=== PATIENT | female | born 1990 | race Two or more races ===

== ENCOUNTER 2024-08-19 13:37 | Emergency (ER) | payer OTHER, SELFPAY ==
[2024-08-19 13:43] VITALS: BP 121/79; PULSE 77; RESP 16; TEMP 36.9; O2SAT 99; BMI 22.3
--- NOTE | 2024-08-19 14:57 | ED.GENADULT ---
HPI - General Adult General Chief complaint: Abdominal Pain Stated complaint: abdominal pain Time Seen by Provider: 08/19/24 14:09 History of Present Illness HPI narrative: [employer]. Pt reports lower right abd pain that started overnight, is concerned of appendicitis. No symptoms other than pain . Rates pain 33-year-old woman presenting to the emergency department with complaint of right lower abdominal pain beginning last night rather intensely and has continued though to this next afternoon. She describes it is somewhat pulsatile. Not as intense as it was before. Can not seem to do anything to affect this pain. Has not taken any medication. No fever. No nausea. No dysuria. No hematuria. She is worried about appendicitis. She has not had any vaginal bleeding or other unusual discharge. She would be anticipating her menses shortly. While she is having bowel movements every day she admits that they are somewhat firm, smaller. She would appreciate something for the pain. Related Data Home Medications ?Medication ?Instructions ?Recorded ?Confirmed No Known Home Medications 08/19/24 08/19/24 Allergies Allergy/AdvReac Type Severity Reaction Status Date / Time Penicillins Allergy Unknown Verified 08/19/24 13:47 Review of Systems Status of ROS: Reports: 6 or more systems reviewed and unremarkable except as noted in History and below Exam Narrative: Exam Narrative: Very pleasant. NAD. Breathing easily. Lungs are clear. Skin is warm and dry. Cheeks are a little red consistent with exposure. Heart in regular rate and rhythm without murmur rub or gallop. Abdomen is soft and normal bowel sounds. No peritoneal signs. Does have reproducible discomfort mild in the right mid to low abdomen. No masses appreciated. Discomfort is not really adnexal. Well-perfused peripherally. Extremities without edema. Const: Vital Signs, click to edit/add: Vital Signs - 24 hr 08/19/24 13:43 Temperature 98.5 F Pulse Rate [Pulse Oximeter] 77 Respiratory Rate 16 Blood Pressure [Ri ght Upper Arm] 121/79 Pulse Oximetry 99 Oxygen Delivery Me thod Room Air Documenting provider has reviewed patient's vital signs: yes Course Vital Signs Vital signs: Initial Vital Signs Temperature 98.5 F 08/19/24 13:43 Temperature Source Temporal Artery Scan 08/19/24 13:43 Pulse Rate 77 08/19/24 13:43 Respiratory Rate 16 08/19/24 13:43 Blood Pressure 121/79 08/19/24 13:43 Blood Pressure Mean 93 08/19/24 13:43 Blood Pressure Position Sitting 08/19/24 13:43 Pulse Oximetry 99 08/19/24 13:43 Oxygen Delivery Method Room Air 08/19/24 13:43 Vital Signs Temperature 98.5 F 08/19/24 13:43 Pulse Rate 77 08/19/24 13:43 Respiratory Rate 16 08/19/24 13:43 Blood Pressure 121/79 08/19/24 13:43 Pulse Oximetry 99 08/19/24 13:43 Oxygen Delivery Method Room Air 08/19/24 13:43 Temperature 98.5 F 08/19/24 13:43 Pulse Rate 77 08/19/24 13:43 Respiratory Rate 16 08/19/24 13:43 Blood Pressure 121/79 08/19/24 13:43 Pulse Oximetry 99 08/19/24 13:43 Oxygen Delivery Method Room Air 08/19/24 13:43 Medications Administered Medications: Discontinued Medications Generic Name Dose Route Start Last Admin Trade Name Eric PRN Reason Stop Dose Admin Ibuprofen 800 mg 08/19/24 15:07 08/19/24 15:37 Ibuprofen 400 Mg Tablet PO 08/19/24 15:08 800 mg ONCE ONE Administration Medical Decision Making MDM Narrative Medical decision making narrative: I would be more suspicious of intestinal colic related to constipation. Can certainly check labs looking for red flags to warrant further evaluation. Check urinalysis for potential urinary tract infection or ureteral stone and colic and of course hCG for potential ectopic. Has never had ovarian cyst but this is a possibility to though not really with discomfort in the adnexal area. This is not appear to be biliary area pain but will check liver labs. I do not think this is a surgical abdomen and so with her request for some pain medicine, giving some ibuprofen. Lack of pain seems inconsistent with torsion. Mesenteric adenitis is a possibility as well. New onset inflammatory bowel? No diarrhea though. If white count particularly elevated would consider CT imaging abdomen and pelvis per concern. Impending abnormal transaminases, limited upper abdominal ultrasound. Of course findings in the urine particularly if positive hCG would generate pelvic ultrasound. Would also consider one-view abdomen x-ray to evaluate for degree of constipation. Labs are reassuring. Normal white count and CRP. Small amount of blood on dipstick in the urine Pain might be partly premenstrual. On reexamination still with mild discomfort in the right mid abdomen but abdomen remains soft. With normal labs and relatively benign abdomen, I am not sure that imaging would be particularly beneficial here. Did discuss options in care with Janae. She is in agreement with watchful waiting. Will see if pain localizes or intensifies to focus imaging if needs to return. Will focus on constipation at this point. See patient discharge plan for further discussion Lab Data Lab results reviewed: Yes I reviewed the patient's lab results Labs: Lab Results 08/19/24 08/19/24 Range/Units 15:20 15:27 WBC 8.68 (4.50-11.00) K/uL RBC 4.36 (4.00-5.20) m/uL Hgb 13.9 (12.0-16.0) gm/dL Hct 39.0 (33.0-51.0) % MCV 89 (80-100) fL MCH 32 (26-34) pg MCHC 36 (32-36) gm/dL RDW Coeff of Catrina 12.5 (11.5-15.5) % Plt Count 268 (140-440) K/uL Neut % (Auto) 59.2 (42.0-72.0) % Lymph % (Auto) 34.1 (20-44) % [place] % (Auto) 4.5 (0.0-11.0) % Eos % (Auto) 1.2 (0.0-7.0) % Baso % (Auto) 0.7 (0.0-3.0) % Neut # (Auto) 5.14 (1.7-7.0) K/uL Lymph # (Auto) 2.96 H (0.90-2.90) K/uL [place] # (Auto) 0.40 (0.00-0.90) K/UL Eos # (Auto) 0.10 (0.00-0.50) K/uL Baso # (Auto) 0.06 (0.00-0.30) K/uL Abs Immat Gran (auto) 0.03 (0.00-0.30) K/uL Imm/Tot Granulo (auto) 0.3 % Sodium 137 (135-149) mmol/L Potassium 3.7 (3.6-5.1) mmol/L Chloride 104 (96-114) mmol/L Carbon Dioxide 22 (20-32) mmol/L Anion Gap 11 (7-15) mEq/L BUN 9 (5-24) mg/dL Creatinine 0.6 (0.5-1.5) mg/dL Estimated Creat Clear 104.49 Estimated GFR 121 ml/min Glucose 102 (60-115) mg/dL Calcium 9.2 (8.4-10.6) mg/dL Total Bilirubin 1.1 (0.1-1.5) mg/dL Direct Bilirubin 0.1 (0.0-0.5) mg/dL AST 19 (12-35) U/L ALT 16 (4-35) U/L Alkaline Phosphatase 86 (40-150) U/L C-Reactive Protein < 0.5 L (0.5-1.0) mg/dL Total Protein 7.4 (6.0-8.3) g/dL Albumin 4.7 (3.3-5.0) g/dL Urine Color Yellow (Yellow) Urine Appearance Clear (Clear) Urine pH 5.5 (5.0-8.5) Ur Specific [place] 1.020 (1.000-1.030) Urine Protein Negative (Negative) Urine Glucose (UA) Negative (Negative) Urine Ketones Negative (Negative) Urine Blood 2+ A (Negative) Urine Nitrite Negative (Negative) Urine Bilirubin Negative (Negative) Urine Urobilinogen 0.2 (0.2-1.0) Ur Leukocyte Esterase Negative (Negative) Urine RBC 0-2 (0-2) Urine WBC 0-2 (0-5) Ur Squamous Epith Cells Many A (None-Few) Amorphous Sediment Moderate A (None) Urine Bacteria None (None) Urine HCG, Qual Negative (Negative) Discharge Plan Discharge Clinical Impression: Right sided abdominal pain, Constipation Additional Instructions: Your abdominal exam is generally reassuring. I wonder if some of your pain may be related to constipation. With that in mind I would focus on hydration. Try to drink 2-3 L of water daily generally. Begin taking MiraLax (generic equivalent is fine) maybe 3 doses over the course of a day each in at least 8 oz of liquid and adjust how many dosings you take in the day to stool consistency. Bowel cleanout otherwise could be accomplished with drinking a bottle of magnesium citrate and repeating next morning if no significant result. Consider an enema if experiencing very hard and painful stool. Repeat in an hour if no good result. All of the medications mentioned above are available [id number]. Return for marked increase in persistent pain particularly if it is localizing or accompanied by fever. Can take up to 800 mg of ibuprofen per dose or up to 1000 mg of acetaminophen per dose. Alternative to the ibuprofen might be up to 500 mg of naproxen 2 times daily. En general, el examen abdominal es tranquilizador. Me pregunto si parte de echavarria dolor puede estar relacionado con el estre?imiento. Teniendo esto en cuenta, me concentrar?a en la hidrataci?n. Trate de beber de 2 a 3 litros de agua por d?a en general. Comience a jacoby MiraLax (el equivalente gen?rico est? georgina), rolan vez 3 dosis en el transcurso de un d?a cada adrien en al menos 8 oz de l?quido y ajuste la cantidad de dosis que john en el d?a seg?n la consistencia de las heces. De lo contrario, la limpieza intestinal se puede lograr bebiendo adrien botella de citrato de magnesio y repitiendo la operaci?n a la ma?yoel siguiente si no hay un resultado significativo. Considere la posibilidad de un enema si experimenta heces muy duras y dolorosas. Repita en adrien hora si no hay un buen resultado. Todos los medicamentos mencionados anteriormente est?n disponibles sin receta. Vuelva si el dolor persistente aumenta notablemente, en particular si es localizado o est? acompa?ado de fiebre. Se pueden jacoby hasta 800 mg de ibuprofeno por dosis o hasta 1000 mg de paracetamol por dosis. Adrien alternativa al ibuprofeno puede ser hasta 500 mg de naproxeno 2 veces al d?a. Prescriptions: No Action No Known Home Medications Follow Up/Referrals: Provider,Not a Local [Primary Care Provider] - Stand Alone Forms: [employer] Info Instructions
[2024-08-19 15:37] LABS: Basophils Absolute Auto 0.06 K/uL (0.00-0.30); Basophils Percent Auto 0.7 % (0.0-3.0); Eosinophils Percent Auto 1.2 % (0.0-7.0); Hemoglobin* 13.9 gm/dL (12.0-16.0); Immature Granulocytes Abs Auto 0.03 K/uL (0.00-0.30); Immature Granulocytes Pct Auto 0.3 %; Lymphocytes Absolute Auto 2.96 K/uL (0.90-2.90); Lymphocytes Percent Auto 34.1 % (20-44); Mean Corpuscular HGB Conc 36 gm/dL (32-36); Mean Corpuscular Hemoglobin 32 pg (26-34); Mean Corpuscular Volume 89 fL (80-100); Monocytes Percent Auto 4.5 % (0.0-11.0); Neutrophils Absolute Auto 5.14 K/uL (1.7-7.0); Neutrophils Percent Auto 59.2 % (42.0-72.0); Platelet Count* 268 K/uL (140-440); RDW Coefficient of Variation % 12.5 % (11.5-15.5); Red Blood Count 4.36 m/uL (4.00-5.20); White Blood Count* 8.68 K/uL (4.50-11.00)
[2024-08-19] MEDS: IBUPROFEN 400 MG TABLET 800 MG PO (15:37)
[2024-08-19 15:40] LABS: Appearance Urine Clear (Clear); Bilirubin Urine Negative (Negative); Blood Urine 2+ (Negative); Color Urine Yellow (Yellow); Glucose Urine Negative (Negative); Ketones Urine Negative (Negative); Leukocyte Esterase Urine Negative (Negative); Nitrite Urine Negative (Negative); Protein Urine Negative (Negative); Urobilinogen Urine 0.2 (0.2-1.0); pH Urine 5.5 (5.0-8.5)
[2024-08-19 15:44] LABS: Ur HCG Qualitative* Negative (Negative)
[2024-08-19 15:48] LABS: Slide Review Reflex No
[2024-08-19 15:54] LABS: Albumin* 4.7 g/dL (3.3-5.0)
[2024-08-19 15:55] LABS: Chloride* 104 mmol/L (96-114); Potassium* 3.7 mmol/L (3.6-5.1); Sodium* 137 mmol/L (135-149)
[2024-08-19 15:57] LABS: Alkaline Phosphatase* 86 U/L (40-150); Aspartate Amino Transferase* 19 U/L (12-35); Bilirubin Direct* 0.1 mg/dL (0.0-0.5); Bilirubin Total* 1.1 mg/dL (0.1-1.5); Total Protein* 7.4 g/dL (6.0-8.3)
[2024-08-19 15:58] LABS: Alanine Aminotransferase* 16 U/L (4-35); Anion Gap 11 mEq/L (7-15); Blood Urea Nitrogen* 9 mg/dL (5-24); Carbon Dioxide* 22 mmol/L (20-32); Creatinine* 0.6 mg/dL (0.5-1.5); Est. Creatinine Clearance* 104.49; Estimated Glomerular Filt Rate 121 ml/min
[2024-08-19 15:59] LABS: Calcium* 9.2 mg/dL (8.4-10.6); Glucose* 102 mg/dL (60-115)
[2024-08-19 16:04] LABS: C Reactive Protein* < 0.5 mg/dL (0.5-1.0)
[2024-08-19 16:14] LABS: Amorphous Sediment Urine Moderate; RBC Urine 0-2 (0-2); Squamous Epithelial Cell Urine Many (None-Few); WBC Urine 0-2 (0-5)
== END 2024-08-19 16:51 | disposition home or self-care (01) ==
PROVIDERS: Emergency Provider Family Medicine
DX: R10.9 Unspecified abdominal pain (principal); K59.00 Constipation, unspecified
CPT/HCPCS: 36415; 80048; 80076; 81001; 81025; 85025; 86140; 99283; 99284; A9270